=== PATIENT | female | born 1975 | race African-American/Black ===

== ENCOUNTER 2017-09-04 11:54 | Emergency (ER) | payer OTHER ==
[~2017-09-04] VITALS: Ht 175.3 cm; Wt 117.9 kg
[~2017-09-04 11:54] MED LIST: ACYCLOVIR200 MG ORAL; CIPROFLOXACIN500 M2 ORAL; CLINDAMYCIN HC300 MG ORAL; CYCLOBENZAPRINE10 MG ORAL; EXCEDRIN EXTRA1 EAC1 PO; FLUCONAZOLE100 MG ORAL; IBUPROFEN600 MG ORAL; IBUPROFEN800 MG ORAL; METRONIDAZOLE500 MG ORAL; NAPROXEN500 M2 ORAL; NKM; NORCO 5-325 TA1 EAC1 ORAL; NORCO 5-325 TA1 EACH ORAL; [UNRECOGNIZED DRUG - OTHER]; multivit
[2017-09-04 12:23] VITALS: BP 137/84
--- NOTE | 2017-09-04 12:32 | Emergency Room Report ---
History of Present Illness General Chief Complaint: General Complaint Source: Patient Present Illness HPI 42-year-old female presents to the emergency department complaining of accidental injury to the left nostril after shish kebab stick was jammed into her nose. 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 Patient reports some mild bleeding but has since stopped. Patient states she is up-to-date with her tetanus vaccination she rates her pain is 2 out of 10 in severity. Denies CP, Palpitations, LOC, AMS, dizziness, Changes in Vision, Sensation, paresthesias, or a sudden severe headache. 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 no evidence of continued bleeding, no septal hematoma. Neck: full range of motion Respiratory: lungs clear, normal breath sounds, speaking full sentences Cardiovascular #1: regular rate, rhythm Musculoskeletal: back normal, gait/station normal, normal range of motion, non- tender Neurologic: alert, oriented x3, responsive, motor strength/tone normal, sensory intact, normal gait, speech normal, grossly normal Psychiatric: judgement/insight normal Skin: normal color, no rash, warm/dry, well hydrated Medical Decision Making PA Attestation Dr. Lam is my supervising Physician whom patient management has been discussed with. Diagnostic Impression: Primary Impression: Nasal bleeding Additional Impression: Nasal trauma Qualified Codes: S09.92XA - Unspecified injury of nose, initial encounter ER Course 42-year-old female presents to the emergency department complaining of accidental injury to the left nostril after shish kebab stick was jammed into her nose. 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 Patient reports some mild bleeding but has since stopped. Patient states she is up-to-date with her tetanus vaccination she rates her pain is 2 out of 10 in severity. Denies CP, Palpitations, LOC, AMS, dizziness, Changes in Vision, Sensation, paresthesias, or a sudden severe headache. Ddx considered but are not limited to epistaxis , clotting disorder, above therapeutic levels on blood thinner. nasal trauma, septal hematoma. Vital signs: are WNL, pt. is afebrile H&PE are most consistent with: abrasion to the left inner nare. no active bleeding. -No evidence of bony nasal trauma, pt. not on blood thinning medications no other symptoms indicating clotting abnormality. PE consistent with hx of event. ORDERS: none required at this time, the diagnosis is clinical ED INTERVENTIONS: -None required at this time. no active bleeding. Pt. declines cauterization. DISCHARGE: At this time pt. is stable for d/c to home. Will provide printed patient care instructions, and any necessary prescriptions. Care plan and follow up instructions have been discussed with the patient prior to discharge. Last Vital Signs Date Time Temp Pulse Resp B/P (MAP) Pulse Ox O2 Delivery O2 Flow Rate FiO2 09/04/17 12:23 95.4 84 16 137/84 98 Room Air 95.4 Disposition: HOME, SELF-CARE Condition: Stable Scripts Mupirocin (Mupirocin) 1 Gm Oin.pf.pancho 1 APPLIC NS TID, #1 GM Prov: Karina Wilcox 09/04/17 Departure Forms: Return to Work Return to Work Date: Sep 05, 2017 Work Restrictions: None Return to Full Activity: Sep 05, 2017 Patient Instructions: Mupirocin nasal ointment, Nosebleed, [id number] Additional Instructions: Take medications as directed. Follow up with a Primary Care Provider in 3-5 days, even if your symptoms have resolved. --Please review list of primary care clinics, if you do not already have a primary care provider Return sooner to ED if new symptoms occur, or current symptoms become worse. - Please note that this Emergency Department Report was dictated using [email or web address] lead developer technology software, occasionally this can lead to erroneous entry secondary to interpretation by the dictation equipment. Karina Wilcox Sep 04, 2017 12:32
[2017-09-04] MEDS ORDERED: MUPIROCIN1 GM NS (12:35)
[2017-09-04 12:42] VITALS: BP 137/84
== END 2017-09-04 12:49 | disposition home or self-care (01) ==
LOC: EMR 12:24
DX: S09.92XA Unspecified injury of nose, initial encounter (principal); W22.8XXA Striking against or struck by other objects, initial encounter; Y92.9 Unspecified place or not applicable; I10 Essential (primary) hypertension; J45.909 Unspecified asthma, uncomplicated
CPT/HCPCS: 99282

== ENCOUNTER 2017-09-12 09:35 | Emergency (ER) | payer OTHER ==
[~2017-09-12] VITALS: Ht 175.3 cm; Wt 113.4 kg
[~2017-09-12 09:35] MED LIST changes: +MUPIROCIN1 GM NS
--- NOTE | 2017-09-12 09:56 | Emergency Room Report ---
History of Present Illness General Chief Complaint: Sore Throat Source: Patient Present Illness HPI Patient presents with 2 days of sore throat. She denies having any fever. The patient's pain is on the right side of her throat and fairly severe. She took Motrin last night and it helped. No cough, dyspnea, chest pain, arthralgias, rashes. No dysuria. Period began today. The patient's had difficulty with skin boils and also possibly staph infection in her nose. She was given Bactroban for the nose recently. Concern over carrying resistant Staph. 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 Review of Systems All Other Systems: negative except mentioned in HPI Physical Exam Vital Signs Date Time Temp Pulse Resp B/P (MAP) Pulse Ox O2 Delivery O2 Flow Rate FiO2 09/12/17 09:39 98.4 91 16 126/74 98 Room Air 98.4 Sp02 EP Interpretation: reviewed, normal General Appearance: well appearing, no apparent distress Head: normocephalic, atraumatic Eyes: bilateral eye normal inspection, bilateral eye PERRL ENT: hearing grossly normal, normal voice, moist mucus membranes, pharyngeal erythema, other - no exudates Neck: full range of motion, supple Respiratory: no respiratory distress, speaking full sentences Gastrointestinal: normal bowel sounds, non tender Genitourinary: no CVA tenderness Musculoskeletal: digits/nails normal, gait/station normal, normal range of motion Neurologic: alert, oriented x3, normal gait, grossly normal Psychiatric: mood/affect normal Skin: no rash Medical Decision Making Diagnostic Impression: Primary Impression: Pharyngitis Qualified Codes: J02.9 - Acute pharyngitis, unspecified ER Course Patient presents with sore throat. She's recently had several staph infections. Differential includes strep, viral amongst others. The patient be treated with Bactrim and Decadron. She is tolerating oral fluids and food without difficulty. Patient is stable for outpatient observation and treatment. Last Vital Signs Date Time Temp Pulse Resp B/P (MAP) Pulse Ox O2 Delivery O2 Flow Rate FiO2 09/12/17 10:22 98.1 70 15 111/70 100 Room Air 98.4 Status: improved Disposition: HOME, SELF-CARE Condition: Improved Scripts Tramadol Hcl* (ULTRAM*) 50 Mg Tablet 50 MG ORAL Q6H Y for For Pain, #6 TAB 0 Refills Prov: Miguel Angel Arzola M.D. 09/12/17 Ibuprofen* (MOTRIN*) 600 Mg Tablet 600 MG ORAL Q6H Y for For Pain, #16 TAB Prov: Miguel Angel Arzola M.D. 09/12/17 Lidocaine HCl 2% Viscous (Lidocaine HCl 2% Viscous) 100 Ml Solution 10 ML ORAL QID, #60 ML 1 Refill Prov: Miguel Angel Arzola M.D. 09/12/17 Trimethoprim/Sulfamethoxazole 160/800* (BACTRIM DS TABLET*) 1 Each Tablet 1 TAB ORAL Q12H, #14 TAB 0 Refills Prov: Miguel Angel Arzola M.D. 09/12/17 Miguel Angel Arzola M.D. Sep 12, 2017 09:56
[2017-09-12] MEDS ORDERED: Bactrim-DS 1 tab ORAL ONE (10:00)
[2017-09-12] MEDS ORDERED: BACTRIM DS TAB1 EAC1 ORAL (10:03)
[2017-09-12] MEDS ORDERED: IBUPROFEN600 MG ORAL (10:03)
[2017-09-12] MEDS ORDERED: TRAMADOL HCL50 MG ORAL (10:03)
[2017-09-12] MEDS ORDERED: LIDOCAINE VISC100 ML ORAL (10:03)
[2017-09-12 10:22] VITALS: BP 111/70
== END 2017-09-12 10:22 | disposition home or self-care (01) ==
LOC: EMR 10:17
DX: J02.9 Acute pharyngitis, unspecified (principal); I10 Essential (primary) hypertension; J45.909 Unspecified asthma, uncomplicated; Z98.84 Bariatric surgery status
CPT/HCPCS: 99284; J8540

== ENCOUNTER 2017-10-29 11:27 | Emergency (ER) | payer OTHER ==
[~2017-10-29] VITALS: Ht 175.3 cm; Wt 115.2 kg
[~2017-10-29 11:27] MED LIST changes: +BACTRIM DS TAB1 EAC1 ORAL; +LIDOCAINE VISC100 ML ORAL; +TRAMADOL HCL50 MG ORAL
[2017-10-29] MEDS ORDERED: NKM (11:45)
[2017-10-29 11:55] VITALS: BP 116/71
[2017-10-29] MEDS ORDERED: Mylanta II UD 30ml ORAL ONE (12:15)
[2017-10-29] MEDS ORDERED: Pantoprazole Inj IV ONE (12:15)
[2017-10-29] MEDS ORDERED: Lidocaine 2% Visc 15ml soln ORAL ONE (12:15)
[2017-10-29 12:23] LABS: HEMATOCRIT 36.4 % (37.0-47.0); HEMOGLOBIN 11.8 G/DL (12.0-16.0); LYMPHOCYTES % (AUTO) 30.7 % (20.0-45.0); MEAN CORPUSCULAR VOLUME 88 FL (80-99); MONOCYTES % (AUTO) 8.7 % (1.0-10.0); NEUTROPHILS % (AUTO) 55.7 % (45.0-75.0); PLATELET COUNT 239 K/UL (150-450); RED BLOOD COUNT 4.16 M/UL (4.20-5.40); RED CELL DISTRIBUTION WIDTH 14.7 % (11.6-14.8); WHITE BLOOD COUNT 5.2 K/UL (4.8-10.8)
[2017-10-29 12:24] LABS: APPEARANCE,URINE SLIGHTLY CLOUDY; BILIRUBIN, URINE NEGATIVE (NEGATIVE); GLUCOSE, URINE (UA) NEGATIVE (NEGATIVE); KETONES,URINE NEGATIVE (NEGATIVE); LEUKOCYTE ESTERASE ,URINE 1+ (NEGATIVE); NITRITE,URINE NEGATIVE (NEGATIVE); PH,URINE 6.5 (4.5-8.0); PROTEIN,URINE NEGATIVE (NEGATIVE); UROBILINOGEN,URINE 1 MG/DL (0.0-1.0)
[2017-10-29 12:25] LABS: COLOR,URINE YELLOW
[2017-10-29 12:38] LABS: ANION GAP 7 mmol/L (5-15); BLOOD UREA NITROGEN 11 mg/dL (7-18); CALCIUM 8.7 MG/DL (8.5-10.1); CARBON DIOXIDE 26 MMOL/L (21-32); CHLORIDE 106 MMOL/L (98-107); CREATININE 0.8 MG/DL (0.55-1.30); SODIUM 139 MMOL/L (136-145)
[2017-10-29 12:44] LABS: ALANINE AMINOTRANSFERASE 21 U/L (12-78); ALBUMIN 3.6 G/DL (3.4-5.0); ALBUMIN/GLOBULIN RATIO 0.9 (1.0-2.7); ALKALINE PHOSPHATASE 47 U/L (46-116); ASPARTATE AMINO TRANSFERASE 20 U/L (15-37); BILIRUBIN,TOTAL 0.3 MG/DL (0.2-1.0)
--- NOTE | 2017-10-29 13:58 | Diagnostic Imaging Report ---
Indication: Chest pain Comparison: 05/12/2015 A single view chest radiograph was obtained. Findings: Cardiomediastinal appearance is within normal limits for age. Pulmonary vascularity is appropriate. The diaphragmatic contour is smooth and costophrenic angles are sharp. No pleural effusions are identified. The bones are unremarkable. Impression: No acute findings
--- NOTE | 2017-10-29 14:10 | Emergency Room Report ---
History of Present Illness General Chief Complaint: Abdominal Pain Source: Patient Present Illness HPI Patient presents with several days of increased epigastric pain. She's been taking Pepcid AC but it hasn't helped with the pain. She tastes acid in her mouth with burping. She denies vomiting blood, chest pain, fevers, melena, hematochezia. Patient's last period was normal for her. Pain rated 8/10, burning, not radiating. She has had to take viscous lido in the past. No chest pain, sore throat, extremity pain. She does smoke. No alcohol. No NSAID use. 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 Review of Systems All Other Systems: negative except mentioned in HPI Physical Exam Vital Signs Date Time Temp Pulse Resp B/P (MAP) Pulse Ox O2 Delivery O2 Flow Rate FiO2 10/29/17 11:40 98.7 76 16 116/71 98 Room Air 98.8 Sp02 EP Interpretation: reviewed, normal General Appearance: well appearing, no apparent distress, GCS 15 Head: normocephalic Eyes: bilateral eye normal inspection, bilateral eye PERRL ENT: moist mucus membranes Neck: supple Respiratory: lungs clear, normal breath sounds Cardiovascular #1: regular rate, rhythm Cardiovascular #2: 2+ radial (R) Gastrointestinal: normal inspection, normal bowel sounds, no mass, non- distended, no guarding, no rebound, tenderness - epigastric Musculoskeletal: back normal, gait/station normal, normal range of motion Neurologic: alert, oriented x3, grossly normal Psychiatric: mood/affect normal Skin: normal inspection, warm/dry Medical Decision Making Diagnostic Impression: Primary Impression: Epigastric pain ER Course Patient presents with epigastric pain. DDX: gastritis, reflux, PUD, pancreatitis amongst others. Needs to have cor checked. Evaluation with EKG, CXR and labs. Patient treated with GI cocktail and pepcid. EKG without injury. CXR normal. Labs CBC, CMP, lipase unremarkable. Patient pain resolved with treatment. Discussed need for further evaluation and to discuss smoking cessation with PMD. Patient stable for outpatient observation and treatment. Laboratory Tests Test 10/29/17 11:52 10/29/17 12:10 Urine Color Yellow Urine Appearance Slightly cloudy Urine pH 6.5 (4.5-8.0) Urine Specific [place] 1.010 (1.005-1.035) Urine Protein Negative (NEGATIVE) Urine Glucose (UA) Negative (NEGATIVE) Urine Ketones Negative (NEGATIVE) Urine Occult Blood Negative (NEGATIVE) Urine Nitrite Negative (NEGATIVE) Urine Bilirubin Negative (NEGATIVE) Urine Urobilinogen 1 MG/DL (0.0-1.0) H Urine Leukocyte Esterase 1+ (NEGATIVE) H Urine RBC 0-2 /HPF (0 - 2) Urine WBC 2-4 /HPF (0 - 2) Urine Squamous Epithelial Cells Occasional /LPF Urine Bacteria Few /HPF (NONE) Urine HCG, Qualitative Negative (NEGATIVE) White Blood Count 5.2 K/UL (4.8-10.8) Red Blood Count 4.16 M/UL (4.20-5.40) L Hemoglobin 11.8 G/DL (12.0-16.0) L Hematocrit 36.4 % (37.0-47.0) L Mean Corpuscular Volume 88 FL (80-99) Mean Corpuscular Hemoglobin 28.4 PG (27.0-31.0) Mean Corpuscular Hemoglobin Concent 32.5 G/DL (32.0-36.0) Red Cell Distribution Width 14.7 % (11.6-14.8) Platelet Count 239 K/UL (150-450) Mean Platelet Volume 8.2 FL (6.5-10.1) Neutrophils (%) (Auto) 55.7 % (45.0-75.0) Lymphocytes (%) (Auto) 30.7 % (20.0-45.0) Monocytes (%) (Auto) 8.7 % (1.0-10.0) Eosinophils (%) (Auto) 4.0 % (0.0-3.0) H Basophils (%) (Auto) 1.0 % (0.0-2.0) Sodium Level 139 MMOL/L (136-145) Potassium Level 4.0 MMOL/L (3.5-5.1) Chloride Level 106 MMOL/L (98-107) Carbon Dioxide Level 26 MMOL/L (21-32) Anion Gap 7 mmol/L (5-15) Blood Urea Nitrogen 11 mg/dL (7-18) Creatinine 0.8 MG/DL (0.55-1.30) Estimate Glomerular Filtration Rate > 60 mL/min (>60) Glucose Level 72 MG/DL (74-106) L Calcium Level 8.7 MG/DL (8.5-10.1) Total Bilirubin 0.3 MG/DL (0.2-1.0) Aspartate Amino Transferase (AST) 20 U/L (15-37) Alanine Aminotransferase (ALT) 21 U/L (12-78) Alkaline Phosphatase 47 U/L (46-116) Total Protein 7.8 G/DL (6.4-8.2) Albumin 3.6 G/DL (3.4-5.0) Globulin 4.2 g/dL Albumin/Globulin Ratio 0.9 (1.0-2.7) L Lipase 106 U/L (73-393) EKG Diagnostic Results Rate: normal Rhythm: NSR ST Segments: no acute changes Rhythm Strip Diag. Results EP Interpretation: yes Rhythm: NSR, no PVC's, no ectopy Chest X-Ray Diagnostic Results Chest X-Ray Diagnostic Results : Chest X-Ray Ordered: Yes # of Views/Limited/Complete: 1 View Indication: Other Interpretation: no consolidation, no effusion, no pneumothorax Impression: No acute disease Electronically Signed by: Electronically signed by Miguel Angel Arzola MD Last Vital Signs Date Time Temp Pulse Resp B/P (MAP) Pulse Ox O2 Delivery O2 Flow Rate FiO2 10/29/17 15:00 98.0 82 20 124/72 98 Room Air 98.0 Status: improved Disposition: HOME, SELF-CARE Condition: Improved Scripts Lidocaine HCl 2% Viscous (Lidocaine HCl 2% Viscous) 100 Ml Solution 10 ML ORAL QID PRN for For Pain, #120 ML 1 Refill Prov: Miguel Angel Arzola M.D. 10/29/17 Acetaminophen (Tylenol) 325 Mg Tablet 650 MG ORAL Q6H PRN for Prn Pain/Headache/Temp > 101, #20 TAB 0 Refills Prov: Miguel Angel Arzola M.D. 10/29/17 Famotidine (PEPCID AC) 20 Mg Tablet 20 MG PO DAILY, #30 TAB Prov: Miguel Angel Arzola M.D. 10/29/17 Mag Hydrox/Al Hydrox/Simeth (MAALOX MAXIMUM STRENGTH SUSP) 355 Ml Oral.susp 30 ML PO Q6HR, #240 ML Prov: Miguel Angel Arzola M.D. 10/29/17 Referrals: [facility] (PCP) Miguel Angel Arzola M.D. October 29, 2017 14:10
[2017-10-29] MEDS ORDERED: PEPCID AC20 M2 PO (14:25)
[2017-10-29] MEDS ORDERED: MAALOX MAXIMUM355 M1 PO (14:25)
[2017-10-29] MEDS ORDERED: TYLENOL325 MG ORAL (14:25)
[2017-10-29] MEDS ORDERED: LIDOCAINE VISC100 ML ORAL (14:25)
[2017-10-29 15:00] VITALS: BP 124/72
== END 2017-10-29 15:03 | disposition home or self-care (01) ==
LOC: EMR 11:56
DX: R10.13 Epigastric pain (principal); I10 Essential (primary) hypertension; J45.909 Unspecified asthma, uncomplicated; Z98.84 Bariatric surgery status
CPT/HCPCS: 36415; 71045; 80053; 81003; 81025; 83690; 85025; 93005; 96374; 99284; C9113

== ENCOUNTER 2018-04-23 02:24 | Emergency (ER) | payer OTHER ==
[~2018-04-23] VITALS: Ht 175.3 cm; Wt 113.4 kg
[~2018-04-23 02:24] MED LIST changes: +MAALOX MAXIMUM355 M1 PO; +PEPCID AC20 M2 PO; +TYLENOL325 MG ORAL
[2018-04-23 02:41] VITALS: BP 143/83
--- NOTE | 2018-04-23 02:52 | Emergency Room Report ---
History of Present Illness General Chief Complaint: Pain Source: Patient Present Illness HPI Patient reports getting the flu shot last week Reports that yesterday started having a headache some body ache Denies any photophobia denies any chest pain denies any neck pain denies any obvious fevers Patient also reports that she worse around kids Denies any rash denies any abdominal pain Headache is 3 out of 10 fairly diffuse Allergies: Coded Allergies: No Known Allergies (Unverified , 01/08/14) Patient History Past Medical History: see triage record Pertinent Family History: none Last Menstrual Period: 03/29/2018 Now: No : 1 Para: 1 Reviewed Nursing Documentation: PMH: Agreed; PSxH: Agreed Nursing Documentation-PMH Hx Hypertension: Yes Hx Asthma: Yes 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 Review of Systems All Other Systems: negative except mentioned in HPI Physical Exam Vital Signs Date Time Temp Pulse Resp B/P (MAP) Pulse Ox O2 Delivery O2 Flow Rate FiO2 04/23/18 02:27 98.2 76 16 143/83 99 Room Air Sp02 EP Interpretation: reviewed, normal General Appearance: well appearing, no apparent distress Head: normocephalic, atraumatic Eyes: bilateral eye PERRL, bilateral eye EOMI ENT: hearing grossly normal, normal pharynx, TMs + canals normal, uvula midline Neck: full range of motion, supple, no meningismus, no bony tend Respiratory: lungs clear, normal breath sounds, no rhonchi, no respiratory distress, no retraction, no accessory muscle use Cardiovascular #1: normal peripheral pulses, regular rate, rhythm, no edema, no gallop, no JVD, no murmur Gastrointestinal: normal bowel sounds, non tender, soft, no mass, no organomegaly, non-distended, no guarding, no hernia, no pulsatile mass, no rebound Genitourinary: no CVA tenderness Musculoskeletal: normal inspection Neurologic: oriented x3, responsive, decontaminator III-XII nml as tested, motor strength/ tone normal, sensory intact Psychiatric: mood/affect normal Skin: normal color, no rash, warm/dry, palpation normal Lymphatic: normal inspection, no adenopathy Medical Decision Making Diagnostic Impression: Primary Impression: Viral syndrome ER Course Patient's history and findings are consistent with likely viral syndrome patient also had a flu shot last week which likely contributed to her presentation Otherwise patient does not show signs of obvious meningitis is not septic or toxic And is otherwise stable for close outpatient follow-up Last Vital Signs Date Time Temp Pulse Resp B/P (MAP) Pulse Ox O2 Delivery O2 Flow Rate FiO2 04/23/18 02:41 98.2 76 16 143/83 99 Room Air Status: improved Disposition: HOME, SELF-CARE Condition: Improved Referrals: [facility] (PCP) Additional Instructions: Patient is provided with the discharge instructions notified to follow up with primary doctor in the next 2-3 days otherwise return to the er with any worsening symptoms. Please note that this report is being documented using [employer] technology. This can lead to erroneous entry secondary to incorrect interpretation by the dictating instrument. Loan Lam DO Apr 23, 2018 02:52
[2018-04-23 03:14] VITALS: BP 143/83
== END 2018-04-23 03:06 | disposition home or self-care (01) ==
LOC: EMR 02:33
DX: B34.9 Viral infection, unspecified (principal); R51 Headache; I10 Essential (primary) hypertension; J45.909 Unspecified asthma, uncomplicated; Z98.84 Bariatric surgery status
CPT/HCPCS: 99282

== ENCOUNTER 2018-11-08 09:51 | Emergency (ER) | payer OTHER ==
[~2018-11-08] VITALS: Ht 175.3 cm; Wt 112.9 kg
[2018-11-08] MEDS ORDERED: NKM (09:59)
--- NOTE | 2018-11-08 10:04 | NUR ---
ED Nurse Note: Pt from home came in due to boils on her left lower abdomen, bilateral legs and right buttock x 2 weeks. Per pt, her boils are re-occuring. Denies drainage. Pt is AAO x4, and ambulatory. VSS.
[2018-11-08 10:09] VITALS: BP 145/79
[2018-11-08] MEDS ORDERED: BACTRIM DS TAB1 EAC1 ORAL (10:10)
[2018-11-08] MEDS ORDERED: CEPHALEXIN500 MG ORAL (10:10)
[2018-11-08] MEDS ORDERED: MUPIROCIN22 GM TOPIC (10:10)
[2018-11-08 10:16] VITALS: BP 145/79
--- NOTE | 2018-11-08 10:16 | NUR ---
ER DISCHARGE NOTE: Patient is cleared to be discharged per ERMD, pt is aox4, on room air, with stable vital signs. pt was given dc and prescription instructions, pt was able to verbalize understanding, pt id band removed. pt is able to ambulate with steady gait. pt took all belongings.
--- NOTE | 2018-11-08 10:19 | Emergency Room Report ---
History of Present Illness General Chief Complaint: Skin Rash/Abscess Source: Patient Present Illness HPI Patient has a history of multiple skin abscesses. Patient has been treated with antibiotics in the past. She presents here complaining of multiple abscesses again. She has particularly one on her left abdomen wall that has drained. She states that healing. She would like some antibiotics however. She complains of some rash beginning develop near her buttock as well as her legs that appear to be early folliculitis. Patient denies any fever. Denies any discharge. Denies any nausea vomiting diarrhea or chills. No other complaints are noted. Symptoms noted to be moderate. No other modifying factors. No other associated signs and symptoms. No other complaints were noted. 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 Review of Systems All Other Systems: negative except mentioned in HPI Physical Exam Vital Signs Date Time Temp Pulse Resp B/P (MAP) Pulse Ox O2 Delivery O2 Flow Rate FiO2 11/08/18 09:54 98.8 70 16 99 Room Air 11/08/18 10:09 145/79 Sp02 EP Interpretation: reviewed, normal General Appearance: normal inspection, well appearing, no apparent distress, alert Head: atraumatic Eyes: bilateral eye normal inspection ENT: normal ENT inspection, hearing grossly normal, normal voice Neck: normal inspection, full range of motion, supple, no bony tend Respiratory: normal inspection, lungs clear, normal breath sounds, no respiratory distress, no retraction, no wheezing Cardiovascular #1: regular rate, rhythm, no edema Gastrointestinal: normal inspection, normal bowel sounds, non tender, soft, no guarding, no hernia Genitourinary: no CVA tenderness Musculoskeletal: normal inspection, back normal, normal range of motion Neurologic: normal inspection, alert, responsive, speech normal Psychiatric: normal inspection, judgement/insight normal, mood/affect normal Skin: other - Areas of folliculitis in the legs. Left upper abdominal wall. No fluctuance noted. Medical Decision Making Diagnostic Impression: Primary Impression: Folliculitis Additional Impression: Abscess ER Course Patient presents to the emergency department today complaining of a rash to her abdomen and legs and buttock area. Differential considerations include abscess , folliculitis, cellulitis just to name a few. Patient's exam is consistent with a abscess that has spontaneously drained with evidence of folliculitis and some mild cellulitis. I informed patient the risk of MRSA recommend clean hygiene. Will recommend Keflex and Bactrim provide prescription. In addition we will give prescription for Bactroban application ointment to the rash folliculitis areas as well as to the nostrils to prevent further spreading and possible MRSA. Patient is advised to follow-up outpatient. Patient is advised to follow up with primary doctor in 2-3 days and return the emergency room for any worsening symptoms and as needed. Last Vital Signs Date Time Temp Pulse Resp B/P (MAP) Pulse Ox O2 Delivery O2 Flow Rate FiO2 11/08/18 10:09 98.5 76 18 145/79 100 Room Air Status: improved Disposition: HOME, SELF-CARE Condition: Stable Scripts Mupirocin* (MUPIROCIN*) 22 Gm Oint...g. 1 APPLIC TOPIC THREE TIMES A DAY for 7 Days, GM Prov: Nilesh Ng MD 11/08/18 Trimethoprim/Sulfamethoxazole 160/800* (BACTRIM DS TABLET*) 1 Each Tablet 1 TAB ORAL Q12H, #14 TAB 0 Refills Prov: Nilesh Ng MD 11/08/18 Cephalexin* (KEFLEX*) 500 Mg Capsule 500 MG ORAL EVERY 6 HOURS for 7 Days, CAP Prov: Nilesh Ng MD 11/08/18 Patient Instructions: Abscess, Cellulitis, [id number], Folliculitis Nilesh Ng MD November 08, 2018 10:19
== END 2018-11-08 11:00 | disposition home or self-care (01) ==
LOC: EMR 10:35
DX: L73.9 Follicular disorder, unspecified (principal); L02.211 Cutaneous abscess of abdominal wall; I10 Essential (primary) hypertension; Z98.84 Bariatric surgery status
CPT/HCPCS: 99282

== ENCOUNTER 2019-01-19 21:20 | Emergency (ER) | payer OTHER ==
[~2019-01-19] VITALS: Ht 175.3 cm; Wt 108.9 kg
[~2019-01-19 21:20] MED LIST changes: +CEPHALEXIN500 MG ORAL; +MUPIROCIN22 GM TOPIC
[2019-01-19 21:27] VITALS: BP 149/90
[2019-01-19] MEDS ORDERED: Acetaminophen 500mg (ES) tab ORAL ONE (21:30)
--- NOTE | 2019-01-19 21:30 | NUR ---
ED Nurse Note: pt walked in c/o headache and generalized body ache since yesterday.
--- NOTE | 2019-01-19 22:18 | Emergency Room Report ---
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 Presents for evaluation Allergies: Coded Allergies: No Known Allergies (Unverified , 11/08/18) Patient History Past Medical History: see triage record Reviewed Nursing Documentation: PMH: Agreed; PSxH: Agreed Nursing Documentation-PMH Hx Hypertension: Yes Hx Asthma: Yes 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 Review of Systems Musculoskeletal: Reports: muscle pain All Other Systems: negative except mentioned in HPI Physical Exam Vital Signs Date Time Temp Pulse Resp B/P (MAP) Pulse Ox O2 Delivery O2 Flow Rate FiO2 01/19/19 21:25 98.4 79 18 149/90 (109) 98 Room Air Sp02 EP Interpretation: reviewed, normal General Appearance: well appearing, no apparent distress, alert Head: normocephalic, atraumatic Eyes: bilateral eye PERRL, bilateral eye EOMI ENT: uvula midline, moist mucus membranes Neck: supple, thyroid normal, supple/symm/no masses Respiratory: lungs clear, no respiratory distress, no retraction, no accessory muscle use Cardiovascular #1: normal peripheral pulses, regular rate, rhythm, no edema, no gallop, no murmur Gastrointestinal: non tender, soft, no guarding, no rebound Musculoskeletal: normal inspection Neurologic: alert, oriented x3 Psychiatric: mood/affect normal Skin: no rash, warm/dry Medical Decision Making Diagnostic Impression: Primary Impression: Viral syndrome ER Course 43-year-old female presents most likely with a viral syndrome, counseled patient that she may need to have supportive care return precautions discussed, follow-up with PCP in 24 to 48 hours, we will provide a work note for her. Vital signs are stable low suspicion for sepsis, low suspicion for UTI, no symptoms, vitals completely stable Last Vital Signs Date Time Temp Pulse Resp B/P (MAP) Pulse Ox O2 Delivery O2 Flow Rate FiO2 01/19/19 21:27 98.4 79 18 149/90 98 Room Air Disposition: HOME, SELF-CARE Condition: Stable Departure Forms: Return to Work Return to Work Date: Jan 24, 2019 Patient Instructions: Viral Respiratory Infection, [id number] Additional Instructions: The patient was provided with discharge instructions, notified to follow-up with a primary care doctor and or specialist in the next 24-48 hours, and to return to the ED if they have worsening of their symptoms. Please note that this report is being documented using [employer] technology. This can lead to erroneous entry secondary to incorrect interpretation by the dictating instrument. Car Burgos MD Jan 19, 2019 22:18
--- NOTE | 2019-01-19 22:25 | NUR ---
ER DISCHARGE NOTE: Patient is cleared to be discharged per ERMD, pt is aox4, on room air, with stable vital signs. pt was given dc instructions, pt was able to verbalize understanding, pt id removed. pt is able to ambulate with steady gait. pt took all belongings.
[2019-01-19 22:26] VITALS: BP 144/87
== END 2019-01-19 22:25 | disposition home or self-care (01) ==
LOC: EMR 21:52
DX: B34.9 Viral infection, unspecified (principal); I10 Essential (primary) hypertension; Z98.84 Bariatric surgery status
CPT/HCPCS: 81025; 99283

== ENCOUNTER 2019-02-22 17:39 | Emergency (ER) | payer OTHER ==
[~2019-02-22] VITALS: Ht 175.3 cm; Wt 111.6 kg
[~2019-02-22 17:39] MED LIST changes: +ALBUTEROL SULF8.5 GM INH; +MUCINEX600 MG PO; +PREDNISONE20 MG ORAL
--- NOTE | 2019-02-22 18:29 | Emergency Room Report ---
History of Present Illness General Chief Complaint: Flu Like Symptoms Source: Medical Record Present Illness HPI 43-year-old female with history of tobacco smoke was here 2 weeks ago for cough and congestion here complaining of worsening cough with green phlegm. Patient reports that he she originally had a sore throat now has been having fever and chills and excess cough. Patient has been taking her prednisone, albuterol inhaler, and cough syrup with minimal relief. Denies chest pain, palpitation, abdominal pain nausea vomiting complains of minimal shortness of breath. Patient is in mild distress. No wheezing is noted on physical exam. Denies urinary symptoms and other associated symptoms. Allergies: Coded Allergies: No Known Allergies (Unverified , 11/08/18) Patient History Past Medical History: see triage record Past Surgical History: unable to obtain Pertinent Family History: none Social History: Reports: smoking Last Menstrual Period: 02/20/19 Now: No Immunizations: UTD Reviewed Nursing Documentation: PMH: Agreed; PSxH: Agreed Nursing Documentation-PMH Past Medical History: No History, Except For Hx Hypertension: Yes Hx Asthma: Yes Hx Gastrointestinal Problems: Yes - Gastric bypass Review of Systems All Other Systems: negative except mentioned in HPI Physical Exam Vital Signs Date Time Temp Pulse Resp B/P (MAP) Pulse Ox O2 Delivery O2 Flow Rate FiO2 02/22/19 17:48 100.0 87 18 150/84 (106) 96 Room Air Sp02 EP Interpretation: reviewed, normal General Appearance: no apparent distress, alert, GCS 15, non-toxic Head: normocephalic, atraumatic Eyes: bilateral eye normal inspection, bilateral eye PERRL ENT: hearing grossly normal, no angioedema, normal voice, pharyngeal erythema Neck: full range of motion, supple, thyroid normal, supple/symm/no masses Respiratory: chest non-tender, lungs clear, normal breath sounds, no rhonchi, no wheezing, speaking full sentences Cardiovascular #1: regular rate, rhythm, no edema, no gallop, no JVD, no murmur Gastrointestinal: normal inspection, normal bowel sounds, non tender, soft Rectal: deferred Genitourinary: normal inspection, no CVA tenderness Musculoskeletal: back normal, gait/station normal, normal range of motion, non- tender Neurologic: alert, oriented x3, responsive, motor strength/tone normal, sensory intact, speech normal Psychiatric: judgement/insight normal, memory normal, mood/affect normal, no suicidal/homicidal ideation Skin: no rash Lymphatic: no adenopathy Medical Decision Making PA Attestation All my diagnosis and treatment plans were reviewed ad discussed with my supervising physician Dr. Hercules Diagnostic Impression: Primary Impression: Pharyngitis ER Course 43-year-old female with history of tobacco smoke was here 2 weeks ago for cough and congestion here complaining of worsening cough with green phlegm. Patient reports that he she originally had a sore throat now has been having fever and chills and excess cough. Patient has been taking her prednisone, albuterol inhaler, and cough syrup with minimal relief. Denies chest pain, palpitation, abdominal pain nausea vomiting complains of minimal shortness of breath. Patient is in mild distress. No wheezing is noted on physical exam. Denies urinary symptoms and other associated symptoms. Ddx considered but are not limited to: bronchitis, PNA, URI viral, pharyngitis Vital signs: are WNL, pt. is afebrile H&PE are most consistent with: Bacterial pharyngitis due to patient's tobacco smoking status ORDERS: Chest x-ray, Phenergan, azithromycin ED INTERVENTIONS: None required at this time. DISCHARGE: At this time pt. is stable for d/c to home. Will provide printed patient care instructions, and any necessary prescriptions. Care plan and follow up instructions have been discussed with the patient prior to discharge. Patient follow-up with her primary care provider continue taking the medication was given to her previously. If worsening symptoms return to emergency room Chest X-Ray Diagnostic Results Chest X-Ray Diagnostic Results : Chest X-Ray Ordered: Yes # of Views/Limited/Complete: 1 View Indication: Shortness of Breath EP Interpretation: Yes KARIN Xray: Interpretation reviewed, by supervising MD, and agrees with findings. Interpretation: no consolidation, no effusion, no pneumothorax Impression: No acute disease Electronically Signed by: Luda Martino PA-C Last Vital Signs Date Time Temp Pulse Resp B/P (MAP) Pulse Ox O2 Delivery O2 Flow Rate FiO2 02/22/19 17:48 100.0 87 18 150/84 (106) 96 Room Air Disposition: HOME, SELF-CARE Condition: Stable Scripts Promethazine Hcl (PROMETHAZINE HCL*) 6.25 Mg/5 Ml Syrup 5 ML ORAL Q6H, #120 ML 0 Refills Prov: Luda Bravo 02/22/19 Azithromycin* (ZITHROMAX*) 250 Mg Tablet 250 MG ORAL DAILY, #6 TAB 0 Refills Take two tables once daily for 1 day, then one tablet once daily for 4 days. Prov: Luda Bravo 02/22/19 Patient Instructions: Pharyngitis, [id number] Additional Instructions: Take medication as directed follow-up with your primary care provider avoid smoking as it increases your risk of bacterial infection. Luda Bravo Feb 22, 2019 18:29
[2019-02-22] MEDS ORDERED: ZITHROMAX250 MG ORAL (18:30)
[2019-02-22] MEDS ORDERED: PROMETHAZI6.25 MG/1 ORAL (18:30)
--- NOTE | 2019-02-22 18:40 | NUR ---
ER DISCHARGE NOTE: Patient is cleared to be discharged per ERMD, pt is aox4, on room air, with stable vital signs. pt was given dc and prescription instructions, pt was able to verbalize understanding, pt is able to ambulate with steady gait. pt took all belongings.
[2019-02-22 19:25] VITALS: BP 150/84
[2019-02-22 19:26] VITALS: BP 150/84
--- NOTE | 2019-02-23 13:41 | Diagnostic Imaging Report ---
Indication: Dyspnea Comparison: 02/20/2019 A single view chest radiograph was obtained. Findings: There is suggestion of minimal atelectasis at the right lung base. Lung volumes remain slightly low. Heart size remains normal. The bones are unremarkable. IMPRESSION: Suspected minimal right basal atelectasis
== END 2019-02-22 18:40 | disposition home or self-care (01) ==
LOC: EMR 18:25
DX: J02.9 Acute pharyngitis, unspecified (principal); R06.02 Shortness of breath; I10 Essential (primary) hypertension; J45.909 Unspecified asthma, uncomplicated; Z98.84 Bariatric surgery status; F17.200 Nicotine dependence, unspecified, uncomplicated
CPT/HCPCS: 71045; 99283

== ENCOUNTER 2019-06-07 09:48 | Emergency (ER) | payer OTHER ==
[~2019-06-07] VITALS: Ht 175.3 cm; Wt 116.1 kg
[~2019-06-07 09:48] MED LIST changes: +PROMETHAZI6.25 MG/1 ORAL; +ZITHROMAX250 MG ORAL
[2019-06-07 10:17] VITALS: BP 139/85
--- NOTE | 2019-06-07 10:18 | NUR ---
ED Nurse Note: Patient walked in to Er c/o lower back pain 02/05. States Thursday was rainy weather and i sliped over. Patient presented calm, AAO x4, VSS at this time.
[2019-06-07] MEDS ORDERED: ROBAXIN-750750 MG PO (10:38)
[2019-06-07] MEDS ORDERED: IBUPROFEN600 MG ORAL (10:38)
[2019-06-07 11:10] VITALS: BP 140/85
--- NOTE | 2019-06-07 11:11 | NUR ---
ER DISCHARGE NOTE: Patient is cleared to be discharged per ERMD, pt is aox4, on room air, with stable vital signs. pt was given dc and prescription instructions, pt was able to verbalize understanding, pt id band removed. pt is able to ambulate with steady gait. pt took all belongings. 2 presc printed.
--- NOTE | 2019-06-07 12:57 | Emergency Room Report ---
History of Present Illness General Chief Complaint: Lower Back Pain or Injury Source: Patient Present Illness HPI Patient presents with complaints of a slip yesterday and her leg slipping forward and the patient catching herself She began having pain to the right lower back and has taken some Excedrin feels that it has significantly improved Denies any focal weakness Denies any pelvic pain denies any neuropathy Denies any other fall or trauma onto the region Allergies: Coded Allergies: No Known Allergies (Unverified , 11/08/18) Patient History Past Medical History: see triage record Last Menstrual Period: 05/19/19 Now: No Reviewed Nursing Documentation: PMH: Agreed; PSxH: Agreed Nursing Documentation-PMH Hx Hypertension: Yes Hx Asthma: Yes Hx Gastrointestinal Problems: Yes - Gastric bypass Review of Systems All Other Systems: negative except mentioned in HPI Physical Exam Vital Signs Date Time Temp Pulse Resp B/P (MAP) Pulse Ox O2 Delivery O2 Flow Rate FiO2 06/07/19 10:01 98.2 68 18 139/85 (103) 98 Room Air Sp02 EP Interpretation: reviewed, normal General Appearance: well appearing, no apparent distress Head: normocephalic, atraumatic Eyes: bilateral eye EOMI ENT: EOM grossly intact Neck: supple Respiratory: lungs clear, no respiratory distress Musculoskeletal: other - Subjectively has some discomfort to the right posterior superior iliac crest region however on palpation nontender, patient ambulatory sensory is intact Neurologic: alert, oriented Psychiatric: normal inspection Skin: no rash Lymphatic: no adenopathy Medical Decision Making Diagnostic Impression: Primary Impression: Low back strain ER Course Patient's clinical history and exam is consistent with a low back strain/sprain Given the lack of any physical trauma and the patient's ambulatory status I did not feel emergency x-ray imaging was required and patient will have initial conservative outpatient trial Last Vital Signs Date Time Temp Pulse Resp B/P (MAP) Pulse Ox O2 Delivery O2 Flow Rate FiO2 06/07/19 11:10 98.0 99 19 140/85 99 Room Air Status: unchanged Disposition: HOME, SELF-CARE Condition: Stable Scripts Methocarbamol* (ROBAXIN-750*) 750 Mg Tablet 750 MG PO TID, #21 TAB 0 Refills Prov: Loan Lam DO 06/07/19 Ibuprofen* (MOTRIN*) 600 Mg Tablet 600 MG ORAL Q8H PRN for For Pain, #20 TAB 0 Refills Prov: Loan Lam DO 06/07/19 Referrals: NON PHYSICIAN (PCP) [facility] Tianna Garcia [facility] Departure Forms: Return to Work Return to Work in (Days): 2 Return to Work Date: Jun 09, 2019 Patient Instructions: Lumbosacral Strain Additional Instructions: Patient is provided with the discharge instructions notified to follow up with primary doctor in the next 2-3 days otherwise return to the er with any worsening symptoms. Please note that this report is being documented using [employer] technology. This can lead to erroneous entry secondary to incorrect interpretation by the dictating instrument. Loan Lam DO Jun 07, 2019 12:57
== END 2019-06-07 11:10 | disposition home or self-care (01) ==
LOC: EMR 10:40
DX: S39.012A Strain of muscle, fascia and tendon of lower back, initial encounter (principal); Z98.84 Bariatric surgery status; W01.0XXA Fall on same level from slipping, tripping and stumbling without subsequent striking against object, initial encounter; Y92.9 Unspecified place or not applicable; I10 Essential (primary) hypertension
CPT/HCPCS: 99282

== ENCOUNTER 2019-08-09 17:01 | Emergency (ER) | payer OTHER ==
[~2019-08-09] VITALS: Ht 175.3 cm; Wt 113.4 kg
[~2019-08-09 17:01] MED LIST changes: +ROBAXIN-750750 MG PO
[2019-08-09 17:30] VITALS: BP 140/90
--- NOTE | 2019-08-09 17:30 | NUR ---
ED Nurse Note: PT walked in to ED for c/o a lump on the right breast area. Denies discharge. area is warm to touch.
--- NOTE | 2019-08-09 18:03 | Emergency Room Report ---
History of Present Illness General Chief Complaint: Skin Rash/Abscess Source: Patient Present Illness HPI 44-year-old female with no significant past medical history other than having multiple cysts and abscesses in both breasts here complaining of feeling a small mass. Breast and a feeling of being warm to touch. Patient has been experiencing these symptoms for a few days, denying any fever and chills, chest pain, shortness of breath, palpitation, headache and dizziness. Mammogram done at age 38 within normal limits. Denies any fall or injury. Denies any nipple discharge, no retraction is noted. Small mobile mass noted on in the medial breast 5:00. Denies . Rating pain 4 out of 10. Allergies: Coded Allergies: No Known Allergies (Unverified , 11/08/18) Patient History Past Medical History: see triage record Past Surgical History: none Pertinent Family History: none Last Menstrual Period: 07/22/19 Now: No Immunizations: UTD Reviewed Nursing Documentation: PMH: Agreed; PSxH: Agreed Nursing Documentation-PMH Past Medical History: No History, Except For Hx Hypertension: Yes Hx Asthma: Yes Hx Gastrointestinal Problems: Yes - Gastric bypass Review of Systems All Other Systems: negative except mentioned in HPI Physical Exam Vital Signs Date Time Temp Pulse Resp B/P (MAP) Pulse Ox O2 Delivery O2 Flow Rate FiO2 08/09/19 17:23 98.8 66 16 146/92 (110) 97 Room Air Sp02 EP Interpretation: reviewed, normal General Appearance: no apparent distress, alert, GCS 15, non-toxic Head: normocephalic, atraumatic Eyes: bilateral eye normal inspection, bilateral eye PERRL ENT: hearing grossly normal, normal pharynx, no angioedema, normal voice Neck: full range of motion, supple/symm/no masses Respiratory: chest non-tender, lungs clear, normal breath sounds, no rhonchi, no respiratory distress, no retraction, speaking full sentences Cardiovascular #1: regular rate, rhythm, no edema, no murmur, normal capillary refill Gastrointestinal: non tender, soft, no mass Genitourinary: no CVA tenderness Musculoskeletal: normal inspection, back normal Neurologic: alert, motor strength/tone normal, oriented x3, sensory intact, responsive, speech normal Psychiatric: normal inspection, judgement/insight normal Skin: no rash, other - Small mobile mass noted on right medial mass at 5:00 no retraction nipple noted, no nipple discharge noted, Lymphatic: no adenopathy Medical Decision Making PA Attestation All my diagnosis and treatment plans were reviewed ad discussed with my supervising physician Dr. Conn Diagnostic Impression: Primary Impression: Breast cyst ER Course 44-year-old female with no significant past medical history other than having multiple cysts and abscesses in both breasts here complaining of feeling a small mass. Breast and a feeling of being warm to touch. Patient has been experiencing these symptoms for a few days, denying any fever and chills, chest pain, shortness of breath, palpitation, headache and dizziness. Mammogram done at age 38 within normal limits. Denies any fall or injury. Denies any nipple discharge, no retraction is noted. Small mobile mass noted on in the medial breast 5:00. Denies . Rating pain 4 out of 10. Ddx considered but are not limited to : Cellulitis, breast cyst versus breast abscess versus malignancy, superficial infection, abscess Vital signs: are WNL, pt. is afebrile H&PE are most consistent with:breast cyst ORDERS: Augmentin, ibuprofen ED INTERVENTIONS: None required at this time. DISCHARGE: At this time pt. is stable for d/c to home. Will provide printed patient care instructions, and any necessary prescriptions. Care plan and follow up instructions have been discussed with the patient prior to discharge. Due to patient history of recurrent breast abscess and cellulitis I wrote an antibiotic however advised patient to start taking when swelling noted and warm to touch or any pus drainage at this time the breast is to be infected. Also advised patient to follow-up with primary care provider for breast ultrasound versus mammogram. If worsening symptoms return to the emergency room Last Vital Signs Date Time Temp Pulse Resp B/P (MAP) Pulse Ox O2 Delivery O2 Flow Rate FiO2 08/09/19 17:23 98.8 66 16 146/92 (110) 97 Room Air Disposition: HOME, SELF-CARE Condition: Stable Scripts Ibuprofen* (MOTRIN*) 600 Mg Tablet 600 MG ORAL Q8H PRN for For Pain, #30 TAB 0 Refills Prov: Luda Bravo 08/09/19 Amoxicillin/Potassium Clav 875-125* (AUGMENTIN 875-125 TABLET*) 1 Each Tablet 1 TAB ORAL TWICE A DAY for 10 Days, #20 TAB Prov: Luda Bravo 08/09/19 Patient Instructions: Breast Cyst Additional Instructions: Take medication as directed, follow-up with your primary care provider, you need to have ultrasound of the breast done to rule out other possibilities of the formation of breast mass. If worsening symptoms return to the emergency room uLda Bravo Aug 09, 2019 18:03
[2019-08-09] MEDS ORDERED: AUGMENTIN 875-1 EAC1 ORAL (18:04)
[2019-08-09] MEDS ORDERED: IBUPROFEN600 MG ORAL (18:04)
[2019-08-09 18:15] VITALS: BP 133/84
--- NOTE | 2019-08-09 18:15 | NUR ---
ER DISCHARGE NOTE: Patient is cleared to be discharged per ERMD, pt is aox4, on room air, with stable vital signs. pt was given dc and prescription instructions, pt was able to verbalize understanding, pt id band removed without complications. pt is able to ambulate with steady gait. pt took all belongings.
== END 2019-08-09 18:15 | disposition home or self-care (01) ==
LOC: EMR 17:30
DX: N60.01 Solitary cyst of right breast (principal); I10 Essential (primary) hypertension; Z98.84 Bariatric surgery status
CPT/HCPCS: 99282